=== PATIENT | female | born 2000 | race African-American/Black ===

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

== ENCOUNTER 2020-10-08 08:25 | Emergency (ER) | payer SELFPAY | END 2020-10-08 09:00 | disposition home or self-care (01) | LOC: NAV ERS 08:25 | DX: Z20.2 Contact with and (suspected) exposure to infections with a predominantly sexual mode of transmission (principal); R05 Cough | CPT/HCPCS: 99283 ==

== ENCOUNTER 2023-08-04 06:36 | Emergency (ER) | payer OTHER ==
[2023-08-04] MEDS ORDERED: Fluconazole 100 MG TAB ONE (07:31)
[2023-08-04 07:38] LABS: Wet Prep Clue Cells Clue Cells Absent (None Seen); Wet Prep Trichomonas Trichomonas Absent (None Seen)
== END 2023-08-04 07:48 | disposition home or self-care (01) ==
LOC: NAV ERS 06:36
DX: B37.31 Acute candidiasis of vulva and vagina (principal)
CPT/HCPCS: 87210; 99283